=== PATIENT | male | born 1975 | race Caucasian/White ===

== ENCOUNTER 2017-09-20 09:43 | Emergency (ER) | payer OTHER ==
[~2017-09-20] VITALS: Ht 177.8 cm; Wt 136.1 kg
[~2017-09-20 09:43] MED LIST: CRUTCH4 XX; CYCL10 PO; Cleocin HCl300 MG PO; EPIN.3I IM; HYDACE5 PO; HYDHCL25 PO; HYDR1TAB94 PO; IBUP800 PO; Keflex500 MG PO; METPRE4DP PO; Norco 5-325 Ta1 EACH PO; PRED10 PO; Pepcid20 MG PO; Percocet 5-3251 EACH PO; Vibramycin100 MG PO
[2017-09-20 10:37] LABS: BASOPHILS ABSOLUTE AUTO 0.03 K/mm3 (0.00-0.23); BASOPHILS PERCENT AUTO 0 % (0-2); EOSINOPHILS ABSOLUTE AUTO 0.25 K/mm3 (0.00-0.68); EOSINOPHILS PERCENT AUTO 3 % (0-6); Hematocrit 42.6 % (37.0-53.0); Hemoglobin 14.8 g/dL (13.5-17.5); IMMATURE GRAN ABSOLUTE AUTO 0.03 K/mm3 (0.00-0.10); IMMATURE GRAN PERCENT AUTO 0 % (0-1); LYMPHOCYTES ABSOLUTE AUTO 1.82 K/mm3 (0.84-5.20); LYMPHOCYTES PERCENT AUTO 20 % (21-46); MONOCYTES PERCENT AUTO 9 % (4-13); Mean Corpuscular HGB 30.3 pg (26.0-34.0); Mean Corpuscular HGB Conc 34.7 g/dL (31.5-36.5); Mean Corpuscular Volume 87 fL (80-100); Mean Platelet Volume 9.5 fL (9.1-12.4); NEUTROPHILS ABSOLUTE AUTO 6.04 K/mm3 (1.96-9.15); NEUTROPHILS PERCENT AUTO 67 % (41-73); Platelet Count 173 K/mm3 (150-400); RDW Coefficient Variation 12.3 % (11.7-14.2); Red Blood Cell Count 4.88 M/mm3 (4.30-5.90); White Blood Cell Count 8.97 K/mm3 (4.00-11.30)
[2017-09-20 10:48] LABS: Alanine Aminotransfer (ALT/SGP 39 U/L (12-78); Albumin, Blood 3.8 g/dL (3.4-5.0); Alk Phos 67 U/L (50-136); Anion Gap 6 mmol/L (6-16); Aspartate Aminotrans (AST/SGOT 27 U/L (12-37); Bilirubin, Total 0.4 mg/dL (0.1-1.0); Blood Urea Nitrogen 16 mg/dL (8-24); Bun/Creatinine Ratio 17.7 (12.0-20.0); CO2, Blood 28 mmol/L (21-32); Calcium, Blood 8.5 mg/dL (8.5-10.1); Chloride, Blood 107 mmol/L (98-108); Creatinine, Blood 0.91 mg/dL (0.60-1.20); Globulin, Blood 3.9 g/dL (2.2-4.0); Glomerular Filtration Rate >60 (60-); Glucose, Blood 155 mg/dL (70-99); Potassium, Blood 4.1 mmol/L (3.5-5.5); Sodium, Blood 141 mmol/L (136-145); Total Protein, Blood 7.7 g/dL (6.4-8.2)
[2017-09-20 10:49] LABS: Source, Urine Clean Catch
[2017-09-20 10:51] LABS: Bilirubin, Urine Neg (Neg); Blood, Urine Neg (Neg); Glucose Qualitative, Urine 2+ (Neg); Ketones, Urine Neg (Neg); Leukocyte Esterase, Urine Neg (Neg); Nitrite, Urine Neg (Neg); Protein, Urine Neg (Neg); Urobilinogen, Urine NORM (Normal)
[2017-09-20 11:12] LABS: Appearance, Urine Clear (Clear); Color, Urine Yellow (P-Yellow)
[2017-09-20] MEDS ORDERED: Percocet 10-321 EACH PO (11:51)
[2017-09-20] MEDS ORDERED: Cipro500 MG PO (11:51)
[2017-09-20] MEDS ORDERED: Flagyl500 MG PO (11:51)
== END 2017-09-20 12:05 | disposition home or self-care (01) ==
LOC: ER 09:43
PROVIDERS: Emergency Medicine
DX: K57.32 Diverticulitis of large intestine without perforation or abscess without bleeding (principal); Z88.0 Allergy status to penicillin; Z88.2 Allergy status to sulfonamides; Z88.8 Allergy status to other drugs, medicaments and biological substances; Z79.2 Long term (current) use of antibiotics
CPT/HCPCS: 36415; 74177; 80053; 81003; 83690; 85025; 96374; 96375; 99284; J1885; J2405; J3010; Q9967

== ENCOUNTER 2018-05-12 18:06 | Emergency (ER) | payer BC ==
[~2018-05-12] VITALS: Ht 177.8 cm; Wt 136.1 kg
[~2018-05-12 18:06] MED LIST changes: +Cipro500 MG PO; +Flagyl500 MG PO; +IBUP400 PO; +Naprosyn500 MG PO; +Percocet 10-321 EACH PO
[2018-05-12 19:18] LABS: BASOPHILS ABSOLUTE AUTO 0.05 K/mm3 (0.00-0.23); BASOPHILS PERCENT AUTO 0 % (0-2); EOSINOPHILS ABSOLUTE AUTO 0.21 K/mm3 (0.00-0.68); EOSINOPHILS PERCENT AUTO 2 % (0-6); Hematocrit 46.6 % (37.0-53.0); Hemoglobin 15.8 g/dL (13.5-17.5); IMMATURE GRAN ABSOLUTE AUTO 0.05 K/mm3 (0.00-0.10); IMMATURE GRAN PERCENT AUTO 0 % (0-1); LYMPHOCYTES ABSOLUTE AUTO 1.07 K/mm3 (0.84-5.20); LYMPHOCYTES PERCENT AUTO 9 % (21-46); MONOCYTES ABSOLUTE AUTO 0.88 K/mm3 (0.16-1.47); MONOCYTES PERCENT AUTO 8 % (4-13); Mean Corpuscular HGB 29.9 pg (26.0-34.0); Mean Corpuscular HGB Conc 33.9 g/dL (31.5-36.5); Mean Corpuscular Volume 88 fL (80-100); Mean Platelet Volume 9.7 fL (9.1-12.4); NEUTROPHILS ABSOLUTE AUTO 9.25 K/mm3 (1.96-9.15); NEUTROPHILS PERCENT AUTO 81 % (41-73); Platelet Count 165 K/mm3 (150-400); RDW Coefficient Variation 12.3 % (11.7-14.2); RDW Standard Deviation 39.8 fL (35.1-46.3); Red Blood Cell Count 5.28 M/mm3 (4.30-5.90); White Blood Cell Count 11.51 K/mm3 (4.00-11.30)
[2018-05-12 19:32] LABS: Alanine Aminotransfer (ALT/SGP 63 U/L (12-78); Alk Phos 69 U/L (50-136); Anion Gap 4 mmol/L (6-16); Aspartate Aminotrans (AST/SGOT 33 U/L (12-37); Bilirubin, Total 0.4 mg/dL (0.1-1.0); Blood Urea Nitrogen 18 mg/dL (8-24); Bun/Creatinine Ratio 20.6 (12.0-20.0); CO2, Blood 31 mmol/L (21-32); Calcium, Blood 8.5 mg/dL (8.5-10.1); Chloride, Blood 102 mmol/L (98-108); Creatinine, Blood 0.88 mg/dL (0.60-1.20); Globulin, Blood 3.9 g/dL (2.2-4.0); Glomerular Filtration Rate >60 (60-); Glucose, Blood 106 mg/dL (70-99); Potassium, Blood 4.2 mmol/L (3.5-5.5); Sodium, Blood 137 mmol/L (136-145); Total Protein, Blood 7.9 g/dL (6.4-8.2)
[2018-05-12] MEDS ORDERED: Colace100 MG PO (23:16)
== END 2018-05-13 01:32 | disposition home or self-care (01) ==
LOC: ER 18:06
PROVIDERS: Emergency Medicine
DX: R10.32 Left lower quadrant pain (principal); I10 Essential (primary) hypertension; F17.220 Nicotine dependence, chewing tobacco, uncomplicated; Z88.0 Allergy status to penicillin; Z88.2 Allergy status to sulfonamides; Z88.8 Allergy status to other drugs, medicaments and biological substances
CPT/HCPCS: 36415; 74177; 80053; 83690; 85025; 96365; 96366; 96368; 96375; 96376; 99284-25; J0744; J2405; J3010; J7030; Q9967

== ENCOUNTER 2019-06-27 12:08 | Emergency (ER) | payer BC ==
[~2019-06-27] VITALS: Ht 177.8 cm; Wt 145.2 kg
[~2019-06-27 12:08] MED LIST changes: +Colace100 MG PO
[2019-06-27] MEDS ORDERED: Zanaflex4 MG PO (12:20)
[2019-06-27] MEDS ORDERED: Norco 5-325 Ta1 EACH PO (12:23)
[2019-06-27] MEDS ORDERED: NAPR500EC PO (12:23)
[2019-06-27 12:44] LABS: BASOPHILS ABSOLUTE AUTO 0.04 K/mm3 (0.00-0.23); BASOPHILS PERCENT AUTO 1 % (0-2); EOSINOPHILS ABSOLUTE AUTO 0.23 K/mm3 (0.00-0.68); EOSINOPHILS PERCENT AUTO 4 % (0-6); Hematocrit 44.7 % (37.0-53.0); Hemoglobin 15.2 g/dL (13.5-17.5); IMMATURE GRAN ABSOLUTE AUTO 0.04 K/mm3 (0.00-0.10); IMMATURE GRAN PERCENT AUTO 1 % (0-1); LYMPHOCYTES ABSOLUTE AUTO 1.55 K/mm3 (0.84-5.20); LYMPHOCYTES PERCENT AUTO 26 % (21-46); MONOCYTES ABSOLUTE AUTO 0.63 K/mm3 (0.16-1.47); MONOCYTES PERCENT AUTO 10 % (4-13); Mean Corpuscular HGB 29.4 pg (26.0-34.0); Mean Corpuscular Volume 87 fL (80-100); Mean Platelet Volume 9.6 fL (9.1-12.4); NEUTROPHILS ABSOLUTE AUTO 3.58 K/mm3 (1.96-9.15); NEUTROPHILS PERCENT AUTO 59 % (41-73); Platelet Count 170 K/mm3 (150-400); RDW Coefficient Variation 12.1 % (11.7-14.2); RDW Standard Deviation 38.4 fL (35.1-46.3); Red Blood Cell Count 5.17 M/mm3 (4.30-5.90); White Blood Cell Count 6.07 K/mm3 (4.00-11.30)
[2019-06-27 13:04] LABS: Alanine Aminotransfer (ALT/SGP 53 U/L (12-78); Albumin, Blood 3.8 g/dL (3.4-5.0); Albumin/Globulin Ratio 0.9 (0.8-1.8); Alk Phos 65 U/L (50-136); Anion Gap 6 mmol/L (6-16); Aspartate Aminotrans (AST/SGOT 29 U/L (12-37); Bilirubin, Total 0.3 mg/dL (0.1-1.0); Blood Urea Nitrogen 16 mg/dL (8-24); CO2, Blood 27 mmol/L (21-32); Calcium, Blood 8.6 mg/dL (8.5-10.1); Chloride, Blood 105 mmol/L (98-108); Creatinine, Blood 0.76 mg/dL (0.60-1.20); Globulin, Blood 4.1 g/dL (2.2-4.0); Glomerular Filtration Rate >60 (60-); Glucose, Blood 167 mg/dL (70-99); Potassium, Blood 3.7 mmol/L (3.5-5.5); Sodium, Blood 138 mmol/L (136-145); Total Protein, Blood 7.9 g/dL (6.4-8.2)
[2019-06-27] MEDS ORDERED: METPRE4DP PO (17:18)
== END 2019-06-27 18:11 | disposition home or self-care (01) ==
LOC: ER 12:08
PROVIDERS: Physician Assistant
DX: M54.10 Radiculopathy, site unspecified (principal); Z88.0 Allergy status to penicillin; Z88.2 Allergy status to sulfonamides; Z79.899 Other long term (current) drug therapy
CPT/HCPCS: 36415; 71275; 76705; 80053; 83690; 85025; 93005; 93010; 96374-59; 96375-59; 99284-25; J1100; J1885; J2270; J2405; Q9967

== ENCOUNTER 2019-08-20 18:09 | Emergency (ER) | payer BC ==
[~2019-08-20] VITALS: Ht 177.8 cm; Wt 142.9 kg
[~2019-08-20 18:09] MED LIST changes: +NAPR500EC PO; +Zanaflex4 MG PO
[2019-08-20] MEDS ORDERED: CYCLOBENZAPRINE5 MG PO (19:53)
[2019-08-20] MEDS ORDERED: KETO10 PO (19:53)
== END 2019-08-20 20:14 | disposition home or self-care (01) ==
LOC: ER 18:09
DX: S39.012A Strain of muscle, fascia and tendon of lower back, initial encounter (principal); F17.220 Nicotine dependence, chewing tobacco, uncomplicated; Z88.0 Allergy status to penicillin; Z88.2 Allergy status to sulfonamides; Z88.8 Allergy status to other drugs, medicaments and biological substances; V86.59XA Driver of other special all-terrain or other off-road motor vehicle injured in nontraffic accident, initial encounter
CPT/HCPCS: 36415; 72131; 73502; 96374; 96375; 96376; 99284-25; A9270; J1170; J1885

== ENCOUNTER 2019-09-24 04:33 | Emergency (ER) | payer BC ==
[~2019-09-24] VITALS: Ht 177.8 cm; Wt 140.6 kg
[~2019-09-24 04:33] MED LIST changes: +CYCLOBENZAPRINE5 MG PO; +KETO10 PO
[2019-09-24 04:56] LABS: BASOPHILS ABSOLUTE AUTO 0.03 K/mm3 (0.00-0.23); BASOPHILS PERCENT AUTO 0 % (0-2); EOSINOPHILS ABSOLUTE AUTO 0.22 K/mm3 (0.00-0.68); EOSINOPHILS PERCENT AUTO 2 % (0-6); Hemoglobin 14.9 g/dL (13.5-17.5); IMMATURE GRAN ABSOLUTE AUTO 0.04 K/mm3 (0.00-0.10); IMMATURE GRAN PERCENT AUTO 0 % (0-1); LYMPHOCYTES ABSOLUTE AUTO 2.03 K/mm3 (0.84-5.20); LYMPHOCYTES PERCENT AUTO 17 % (21-46); MONOCYTES ABSOLUTE AUTO 1.27 K/mm3 (0.16-1.47); MONOCYTES PERCENT AUTO 10 % (4-13); Mean Corpuscular HGB 29.6 pg (26.0-34.0); Mean Corpuscular HGB Conc 33.9 g/dL (31.5-36.5); Mean Corpuscular Volume 88 fL (80-100); NEUTROPHILS ABSOLUTE AUTO 8.65 K/mm3 (1.96-9.15); NEUTROPHILS PERCENT AUTO 71 % (41-73); Platelet Count 183 K/mm3 (150-400); RDW Standard Deviation 38.5 fL (35.1-46.3); Red Blood Cell Count 5.03 M/mm3 (4.30-5.90); White Blood Cell Count 12.24 K/mm3 (4.00-11.30)
[2019-09-24 05:29] LABS: Albumin, Blood 3.8 g/dL (3.4-5.0); Albumin/Globulin Ratio 0.9 (0.8-1.8); Anion Gap 7 mmol/L (6-16); Bilirubin, Total 0.4 mg/dL (0.1-1.0); Blood Urea Nitrogen 17 mg/dL (8-24); Bun/Creatinine Ratio 19.8 (12.0-20.0); CO2, Blood 27 mmol/L (21-32); Calcium, Blood 8.1 mg/dL (8.5-10.1); Chloride, Blood 104 mmol/L (98-108); Creatinine, Blood 0.86 mg/dL (0.60-1.20); Globulin, Blood 4.2 g/dL (2.2-4.0); Glomerular Filtration Rate >60 (60-); Glucose, Blood 134 mg/dL (70-99); Potassium, Blood 4.2 mmol/L (3.5-5.5); Sodium, Blood 138 mmol/L (136-145)
[2019-09-24 05:30] LABS: Alanine Aminotransfer (ALT/SGP 49 U/L (12-78); Alk Phos 76 U/L (50-136); Aspartate Aminotrans (AST/SGOT 23 U/L (12-37)
[2019-09-24] MEDS ORDERED: Norco 5-325 Ta1 EACH PO ×2 (05:38)
[2019-09-24] MEDS ORDERED: ONDA4ODT MM ×2 (05:38)
[2019-09-24] MEDS ORDERED: Cipro500 MG PO ×2 (05:38)
[2019-09-24] MEDS ORDERED: Flagyl500 MG PO ×2 (05:38)
== END 2019-09-24 06:18 | disposition home or self-care (01) ==
LOC: ER 04:33
PROVIDERS: Emergency Medicine
DX: K57.32 Diverticulitis of large intestine without perforation or abscess without bleeding (principal); F17.220 Nicotine dependence, chewing tobacco, uncomplicated; Z88.0 Allergy status to penicillin; Z88.2 Allergy status to sulfonamides; Z88.8 Allergy status to other drugs, medicaments and biological substances
CPT/HCPCS: 36415; 74176; 80053; 83690; 85025; 96361; 96374; 96375; 99284-25; A9270-GY; J1885; J2405; J3010; J7030

== ENCOUNTER 2019-09-24 20:46 | Inpatient (IN) | payer BC ==
[~2019-09-24] VITALS: Ht 177.8 cm; Wt 143.4 kg
[~2019-09-24 20:46] MED LIST changes: +ONDA4ODT MM
[2019-09-24 22:00] LABS: BASOPHILS ABSOLUTE AUTO 0.04 K/mm3 (0.00-0.23); BASOPHILS PERCENT AUTO 1 % (0-2); EOSINOPHILS ABSOLUTE AUTO 0.19 K/mm3 (0.00-0.68); EOSINOPHILS PERCENT AUTO 2 % (0-6); Hematocrit 41.8 % (37.0-53.0); Hemoglobin 14.5 g/dL (13.5-17.5); IMMATURE GRAN ABSOLUTE AUTO 0.03 K/mm3 (0.00-0.10); IMMATURE GRAN PERCENT AUTO 0 % (0-1); LYMPHOCYTES ABSOLUTE AUTO 2.32 K/mm3 (0.84-5.20); LYMPHOCYTES PERCENT AUTO 28 % (21-46); MONOCYTES ABSOLUTE AUTO 0.68 K/mm3 (0.16-1.47); MONOCYTES PERCENT AUTO 8 % (4-13); Mean Corpuscular HGB 30.1 pg (26.0-34.0); Mean Corpuscular HGB Conc 34.7 g/dL (31.5-36.5); Mean Corpuscular Volume 87 fL (80-100); NEUTROPHILS ABSOLUTE AUTO 5.11 K/mm3 (1.96-9.15); NEUTROPHILS PERCENT AUTO 61 % (41-73); RDW Standard Deviation 38.2 fL (35.1-46.3); Red Blood Cell Count 4.82 M/mm3 (4.30-5.90); White Blood Cell Count 8.37 K/mm3 (4.00-11.30)
[2019-09-24 22:04] LABS: Mean Platelet Volume 10.5 fL (9.1-12.4); Platelet Count 187 K/mm3 (150-400)
[2019-09-24 22:10] LABS: Alanine Aminotransfer (ALT/SGP 49 U/L (12-78); Albumin, Blood 3.7 g/dL (3.4-5.0); Albumin/Globulin Ratio 0.9 (0.8-1.8); Alk Phos 70 U/L (50-136); Anion Gap 7 mmol/L (6-16); Aspartate Aminotrans (AST/SGOT 31 U/L (12-37); Bilirubin, Total 0.3 mg/dL (0.1-1.0); Blood Urea Nitrogen 20 mg/dL (8-24); Bun/Creatinine Ratio 21.9 (12.0-20.0); CO2, Blood 26 mmol/L (21-32); Calcium, Blood 7.8 mg/dL (8.5-10.1); Chloride, Blood 106 mmol/L (98-108); Creatinine, Blood 0.92 mg/dL (0.60-1.20); Globulin, Blood 4.1 g/dL (2.2-4.0); Glomerular Filtration Rate >60 (60-); Glucose, Blood 106 mg/dL (70-99); Potassium, Blood 3.6 mmol/L (3.5-5.5); Sodium, Blood 139 mmol/L (136-145); Total Protein, Blood 7.8 g/dL (6.4-8.2)
[2019-09-25 05:36] LABS: BASOPHILS ABSOLUTE AUTO 0.05 K/mm3 (0.00-0.23); BASOPHILS PERCENT AUTO 1 % (0-2); EOSINOPHILS PERCENT AUTO 3 % (0-6); Hematocrit 41.6 % (37.0-53.0); Hemoglobin 13.6 g/dL (13.5-17.5); IMMATURE GRAN ABSOLUTE AUTO 0.03 K/mm3 (0.00-0.10); IMMATURE GRAN PERCENT AUTO 0 % (0-1); LYMPHOCYTES ABSOLUTE AUTO 2.31 K/mm3 (0.84-5.20); LYMPHOCYTES PERCENT AUTO 34 % (21-46); MONOCYTES ABSOLUTE AUTO 0.78 K/mm3 (0.16-1.47); MONOCYTES PERCENT AUTO 12 % (4-13); Mean Corpuscular HGB 29.2 pg (26.0-34.0); Mean Corpuscular HGB Conc 32.7 g/dL (31.5-36.5); NEUTROPHILS ABSOLUTE AUTO 3.39 K/mm3 (1.96-9.15); NEUTROPHILS PERCENT AUTO 50 % (41-73); Platelet Count 155 K/mm3 (150-400); RDW Coefficient Variation 12.2 % (11.7-14.2); RDW Standard Deviation 39.7 fL (35.1-46.3); Red Blood Cell Count 4.65 M/mm3 (4.30-5.90); White Blood Cell Count 6.76 K/mm3 (4.00-11.30)
[2019-09-25 05:39] LABS: Mean Corpuscular Volume 90 fL (80-100)
[2019-09-25 05:56] LABS: Anion Gap 3 mmol/L (6-16); Blood Urea Nitrogen 17 mg/dL (8-24); CO2, Blood 31 mmol/L (21-32); Calcium, Blood 7.8 mg/dL (8.5-10.1); Chloride, Blood 106 mmol/L (98-108); Creatinine, Blood 0.89 mg/dL (0.60-1.20); Glomerular Filtration Rate >60 (60-); Glucose, Blood 113 mg/dL (70-99); Potassium, Blood 4.2 mmol/L (3.5-5.5); Sodium, Blood 140 mmol/L (136-145)
--- NOTE | 2019-09-25 06:28 | NUR ---
SHIFT SUMMARY PT WAS A NEW ADMIT DURING THE NIGHT, ARRIVING ON THE FLOOR AT 2358. HE WAS ADMITTED FOR DIVERTICULITIS WITH PERFORATIONS. PT IS A&O X 4, UP INDEPENDENTLY. HE REPORTED LOWER ABD PAIN AT A 6-7/10, AND WAS TREATED WITH PRN IV DILAUDID 0.5 MG AND PRN IV TORADOL 15 MG, BUT DENIED RELIEF FROM EITHER MED. NO COMPLAINTS OF NAUSEA OR SOB. VITAL SIGNS STABLE. PT WAS STARTED ON A CPAP DURING THE NIGHT. RECEIVING NS @ 75 ML/HR. PT IS CURRENTLY NPO, AWAITING SURGICAL CONSULT. NO OTHER ACUTE CHANGES IN PT CONDITION NOTED. WILL CONTINUE TO MONITOR AND TREAT PER EMAR UNTIL HAND OFF TO DAY SHIFT RN.
--- NOTE | 2019-09-25 16:35 | NUR ---
SHIFT SUMMARY PT SEEN BY DR. LIU FOR SURGICAL CONSULT. PLAN TO REST BOWEL WITH CLEAR LIQUIDS ONLY. PT STATES THE LIQUIDS ARE STILL UPSETING HIS STOMACH. PT EDUCATED TO ONLY INTAKE WHAT HE CAN TOLERATE FOR NOW, EVEN IF IT IS ONLY WATER. PT TOLERATING IV FLUIDS AT THIS TIME. SHOWERED TODAY. SEE EMAR FOR PAIN MED ADMINISTRATION. NO OTHER CHANGES IN ASSESSMENT AT THIS TIME. VSS. WILL CONTINUE TO MONITOR UNTIL TURNOVER IS COMPLETE.
--- NOTE | 2019-09-26 13:56 | NUR ---
PAtient is sitting on EOB and alert. Patient tells me he will be DC soon. Patient tells me about his family unit complications, his career and his spiritual journey (patient is lutheran). 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 I listen empathically, encourage self-care and provide prayer. Patient responds well and voices much appreciation for the prayer.
[2019-09-26] MEDS ORDERED: CIPR500 PO ×2 (14:16)
[2019-09-26] MEDS ORDERED: METR500 PO ×2 (14:17)
[2019-09-26] MEDS ORDERED: Florastor250 MG PO ×2 (14:18)
--- NOTE | 2019-09-26 14:58 | NUR ---
PT DISCHARGED. PT DISCHARGED IN STABLE CONDITION. PT STATES DECREASED ABD PAIN AND HAS NOT NEEDED PAIN MEDS THIS SHIFT. NO NAUSEA MEDS NEEDED EITHER. PT TOLERATING SMALL AMOUNTS OF CLEAR LIQUID. PT EDUCATED ON REMAINING ON LIQUID DIET AND ADVANCING TOLERATED. PT EDUCATED ON NEW MEDS AND FOLLOW UP APPOINTMENTS. PT DENIES NEED FOR FURTHER INSTRUCTION. PT ESCORTED OUT BY THIS RN.
== END 2019-09-26 15:15 | disposition home or self-care (01) | DRG 392 ==
LOC: ER 20:46 → MEDS 20:47
PROVIDERS: Emergency Medicine; Nurse Practitioner Acute Care; ADMIT Internal Medicine
DX: K57.20 Diverticulitis of large intestine with perforation and abscess without bleeding (principal); Z68.41 Body mass index [BMI] 40.0-44.9, adult; I10 Essential (primary) hypertension; G47.33 Obstructive sleep apnea (adult) (pediatric); F17.220 Nicotine dependence, chewing tobacco, uncomplicated; E66.9 Obesity, unspecified; Z88.0 Allergy status to penicillin; Z88.2 Allergy status to sulfonamides; Z90.49 Acquired absence of other specified parts of digestive tract
CPT/HCPCS: 36415; 80048; 80053; 83690; 85025; 94660; 94762; 96365; 96367; 96375; 96376; 99284-25; G0378; J0360; J0694; J0696; J1170; J1885; J2405; J3010; J7030

== ENCOUNTER → 2021-01-24 | Outpatient (CLI) | payer BC ==
[~2021-01-24] MED LIST changes: +CIPR500 PO; +Florastor250 MG PO; +METR500 PO; +Prednisone20 MG PO
== END | disposition home or self-care (01) ==
LOC: LAB 13:36 → LAB SHORT 13:36
DX: Z20.822 Contact with and (suspected) exposure to COVID-19 (principal)
CPT/HCPCS: U0003

== ENCOUNTER 2021-11-16 17:23 | Emergency (ER) | payer BC ==
[~2021-11-16] VITALS: Ht 182.9 cm; Wt 145.2 kg
[~2021-11-16 17:23] MED LIST changes: +ACET325 PO; +ACET500 PO; +ASPI81CH PO; +HYDCHL25 PO
== END 2021-11-16 20:17 | disposition home or self-care (01) ==
LOC: ER 17:23
DX: S83.92XA Sprain of unspecified site of left knee, initial encounter (principal); X50.1XXA Overexertion from prolonged static or awkward postures, initial encounter; Z88.0 Allergy status to penicillin; Z88.2 Allergy status to sulfonamides; Z88.8 Allergy status to other drugs, medicaments and biological substances; Z79.899 Other long term (current) drug therapy
CPT/HCPCS: 73562-LT; J1885

== ENCOUNTER 2023-03-24 09:13 | Emergency (ER) | payer BC ==
[~2023-03-24] VITALS: Ht 177.8 cm; Wt 145.2 kg
[2023-03-24 10:04] VITALS: BP 231/153
[2023-03-24] MEDS ORDERED: Norco 5-325 Ta1 EACH PO (12:46)
== END 2023-03-24 12:55 | disposition home or self-care (01) ==
LOC: ER 09:13
DX: M25.561 Pain in right knee (principal); W10.1XXA Fall (on)(from) sidewalk curb, initial encounter
CPT/HCPCS: 73562-RT; 73700; 99284-25; A9270

== ENCOUNTER 2023-03-26 12:31 | Inpatient (IN) | payer BC ==
[~2023-03-26] VITALS: Ht 177.8 cm; Wt 149.7 kg
[2023-03-26 12:53] LABS: BASOPHILS ABSOLUTE AUTO 0.05 K/mm3 (0.00-0.23); BASOPHILS PERCENT AUTO 1 % (0-2); EOSINOPHILS ABSOLUTE AUTO 0.13 K/mm3 (0.00-0.68); EOSINOPHILS PERCENT AUTO 2 % (0-6); Hematocrit 46.7 % (37.0-53.0); Hemoglobin 15.9 g/dL (13.5-17.5); IMMATURE GRAN ABSOLUTE AUTO 0.02 K/mm3 (0.00-0.10); IMMATURE GRAN PERCENT AUTO 0 % (0-1); LYMPHOCYTES ABSOLUTE AUTO 2.27 K/mm3 (0.84-5.20); LYMPHOCYTES PERCENT AUTO 31 % (21-46); MONOCYTES ABSOLUTE AUTO 0.72 K/mm3 (0.16-1.47); MONOCYTES PERCENT AUTO 10 % (4-13); Mean Corpuscular HGB 29.4 pg (26.0-34.0); Mean Corpuscular Volume 86 fL (80-100); Mean Platelet Volume 10.4 fL (9.1-12.4); NEUTROPHILS ABSOLUTE AUTO 4.22 K/mm3 (1.96-9.15); NEUTROPHILS PERCENT AUTO 57 % (41-73); Platelet Count 177 K/mm3 (150-400); RDW Coefficient Variation 12.6 % (11.7-14.2); RDW Standard Deviation 39.5 fL (35.1-46.3); Red Blood Cell Count 5.41 M/mm3 (4.30-5.90); White Blood Cell Count 7.41 K/mm3 (4.00-11.30)
[2023-03-26 13:16] LABS: Albumin, Blood 3.8 g/dL (3.4-5.0); Bilirubin, Total 0.5 mg/dL (0.1-1.0); Calcium, Blood 8.5 mg/dL (8.5-10.1); Creatinine, Blood 1.21 mg/dL (0.60-1.20); Globulin, Blood 3.9 g/dL (2.2-4.0); Potassium, Blood 4.3 mmol/L (3.5-5.5); Total Protein, Blood 7.7 g/dL (6.4-8.2)
[2023-03-26] MEDS ORDERED: Lisinopril-Hct1 EAC4 PO (16:31)
[2023-03-26 22:33] VITALS: BP 165/103
--- NOTE | 2023-03-26 23:12 | NUR ---
ADMIT NOTE PT ARRIVED TO ROOM 355 FROM ED AT 2225. ARRIVED VIA WHEELCHAIR AND TRANSFERED INDEPENDENTLY TO THE BED. DYSPNEIC WITH EXERTION, PLACED PT ON 2L NC. PT ENDORSES MILD RIGHT KNEE PAIN UPON ARRIVAL. PT IS ABLE TO REST INTO THE BED COMFORTABLY. BED IN LOWEST POSITION, CALL LIGHT WITHIN REACH. FIRE EDUCATION PROVIDED. FIRE IGNITION RISK ASSESSED, PT DENIES HAVING ANY FORMS OF IGNITION.
[2023-03-26 23:23] VITALS: BP 147/89
[2023-03-27 04:09] VITALS: BP 134/77
--- NOTE | 2023-03-27 04:41 | NUR ---
SHIFT SUMMARY PT IS A&OX4. HYPER-NORMOTENSIVE, HR 60-70'S, AFEBRILE, O2 SATS >95% ON 2L NC, CPAP WHILE ASLEEP. DYSPNEA WITH EXERTION. NO COMPLAINTS OF CHEST PAIN OR PRESSURE THIS SHIFT. C/O RIGHT KNEE PAIN, BUT DOESN'T REQUEST PAIN MEDS. ON A 2GM NA RESTRICTED DIET. VOIDING ADEQUATE AMOUNTS YELLOW URINE, INDEPENDENTLY IN URINAL. NO BM THIS SHIFT. BED IN LOWEST POSITION. CALL LIGHT WITHIN REACH. FIRE SAFETY CHECKS COMPLETED
[2023-03-27 05:49] LABS: Bun/Creatinine Ratio 26.1 (12.0-20.0); Calcium, Blood 8.6 mg/dL (8.5-10.1); Creatinine, Blood 1.15 mg/dL (0.60-1.20); Potassium, Blood 4.4 mmol/L (3.5-5.5)
[2023-03-27 08:05] VITALS: BP 137/74
[2023-03-27 15:46] VITALS: BP 162/99
--- NOTE | 2023-03-27 17:54 | NUR ---
SHIFT SUMMARY: PT IS A 47 YEAR OLD MALE HERE FOR NEW ONSET CHF. WE ARE AWAITING RESULT FOR AN ECHO THAT WAS DONE TODAY. HE DENIED ANY CHEST PAIN, BUT STATES THAT HE WILL HAVE CHEST PRESSURE WHEN HE LAYS FLAT. HE IS SHORT OF BREATH WITH EXERTION, BUT DOESN'T SEEM LABORED WITH HIS BREATHING THING MORNING. HE HAS COMPLAINED OF SEVERE HEADACHES WITH THE NITRO PASTE, THIS WAS D/C'D THIS AFTERNOON. TREATING HEADACHES AND CHRONIC BILTERAL KNEE PAIN WITH PRN MEDS. HE IS ALERT AND ORIENTED X4 AND INDEPENDENT IN THE ROOM, CALLS APPROPRIATELY. ON ROOMAIR AND MAINTAINING OXYGEN SATURATION <92% ON CONTINUOUS BI OX. IN BED AND DAUGHTER AT BEDSIDE, CALL LIGHT WITHIN REACH, NO SIGNS OR SYMPTOMS OF DISTRESS. PLAN OF CARE ONGOING.
[2023-03-27 20:01] VITALS: BP 155/103
[2023-03-27 21:42] VITALS: BP 159/95
--- NOTE | 2023-03-28 04:26 | NUR ---
SHIFT SUMMARY; NO ACUTE CHANGES OVERNIGHT. THE PT IS AXO X4 AND INDEPENDENT IN THE ROOM. THE PT HAS CPAP ON W/ 5L BLEED IN SATS HAVE BEEN >92% T/O THE NIGHT. THE PT IS AWAITING ECHO RESULTS AND IS HOPEFUL HE CAN DC TODAY. THE PT HAS BEEN SLEEPING IN BED FOR THE DURATION OF THE SHIFT. THE PT DENIES ANY SOB, CHEST PAIN/PRESSURE OR N/V. THE PT ENDORSED SOME MILD R KNEE PAIN AT THE BEGINNING OF SHIFT BUT IT WAS NOT SEVERE ENOUGH THAT HE WANTED ANY PRN PAIN MEDICATIONS AT THAT TIME. PRESENTLY THE PT IS SLEEPING IN BED WITH THE BED IN THE LOWEST POSITION AND THE CALL LIGHT AT BEDSIDE. FIRE SAFETY CHECKS COMPLETED T/O THE SHIFT.
[2023-03-28 04:49] VITALS: BP 142/99
[2023-03-28 05:11] LABS: Calcium, Blood 8.6 mg/dL (8.5-10.1); Creatinine, Blood 1.16 mg/dL (0.60-1.20); Potassium, Blood 4.1 mmol/L (3.5-5.5)
[2023-03-28 07:44] VITALS: BP 141/92
[2023-03-28 15:36] VITALS: BP 154/90
--- NOTE | 2023-03-28 17:52 | NUR ---
SHIFT SUMMARY EDUCATION PROVIDED IN WRITING ON HEART FAILURE, QUESTIONS ANSWERED. OVERNIGHT OXIMETRY STUDY ORDERED. C/O PAIN IN KNEE, REQUIRING NORCO. TOLERATING ROOM AIR ALL SHIFT. WILL CONTINUE TO MONITOR
[2023-03-28 20:16] VITALS: BP 135/81
--- NOTE | 2023-03-29 04:29 | NUR ---
SHIFT SUMMARY; NO ACUTE CHANGES OVERNIGHT. THE PT IS AXO X4 AND INDEPENDENT IN THE ROOM. THE PT HAS BEEN SLEEPING FOR THE ENTIRETY OF THE NIGHT. THE PT HAD A SLEEP STUDY OVERNIGHT. THE PT REQUESTED PRN PAIN MEDICATION AT THE BEGINNING OF SHIFT FOR HIS R KNEE BUT HAS SINCE BEEN SLEEPING. THE PT OTHERWISE DENIES ANY SOB, CHEST PAIN/PRESSURE OR N/V THIS SHIFT. CURRENTLY THE PT IS SLEEPING IN BED WITH THE BED IN THE LOWEST POSITION AND THE CALL LIGHT AT BEDSIDE. FIRE SAFETY ROUNDS COMPLETED.
[2023-03-29 05:09] VITALS: BP 106/68
[2023-03-29 07:38] VITALS: BP 148/84
[2023-03-29] MEDS ORDERED: FURO40 PO (12:06)
[2023-03-29] MEDS ORDERED: ASPI81CH PO (12:06)
[2023-03-29] MEDS ORDERED: METO25ER PO (12:07)
[2023-03-29] MEDS ORDERED: LISI20 PO (12:07)
[2023-03-29] MEDS ORDERED: POTA10T PO (12:08)
[2023-03-29] MEDS ORDERED: FARXIGA10 MG PO (12:08)
== END 2023-03-29 13:09 | disposition home or self-care (01) | DRG 291 ==
LOC: ER 12:31 → MEDS 12:32 → ENPENDDIS 03-29 11:20 → MEDS 03-29 13:09
PROVIDERS: Emergency Medicine; Internal Medicine; Nurse Practitioner Acute Care; ADMIT Internal Medicine
PROC: 5A09357 Assistance with Respiratory Ventilation, Less than 24 Consecutive Hours, Continuous Positive Airway Pressure (ICD-10-PCS; principal; 2023-03-29)
DX: I11.0 Hypertensive heart disease with heart failure (principal); I50.21 Acute systolic (congestive) heart failure; I43 Cardiomyopathy in diseases classified elsewhere; I16.0 Hypertensive urgency; R07.9 Chest pain, unspecified; F17.290 Nicotine dependence, other tobacco product, uncomplicated; K57.90 Diverticulosis of intestine, part unspecified, without perforation or abscess without bleeding; G47.33 Obstructive sleep apnea (adult) (pediatric); Z88.0 Allergy status to penicillin; Z88.2 Allergy status to sulfonamides; Z88.8 Allergy status to other drugs, medicaments and biological substances; Z79.82 Long term (current) use of aspirin; Z79.891 Long term (current) use of opiate analgesic; Z90.49 Acquired absence of other specified parts of digestive tract
CPT/HCPCS: 36415; 71046; 80048; 80053; 83735; 83880; 84443; 84484; 85025; 93005; 93010; 93306; 94660; 94761; 94762; 96374; 96376; 99285-25; A9270; G0378; J1650; J1940

== ENCOUNTER 2023-04-04 06:41 | Emergency (ER) | payer BC ==
[~2023-04-04] VITALS: Ht 177.8 cm; Wt 147.4 kg
[~2023-04-04 06:41] MED LIST changes: +FARXIGA10 MG PO; +FURO40 PO; +LISI20 PO; +Lisinopril-Hct1 EAC4 PO; +METO25ER PO; +POTA10T PO
[2023-04-04 07:08] LABS: BASOPHILS ABSOLUTE AUTO 0.09 K/mm3 (0.00-0.23); BASOPHILS PERCENT AUTO 1 % (0-2); EOSINOPHILS ABSOLUTE AUTO 0.33 K/mm3 (0.00-0.68); EOSINOPHILS PERCENT AUTO 4 % (0-6); Hematocrit 48.9 % (37.0-53.0); Hemoglobin 16.5 g/dL (13.5-17.5); IMMATURE GRAN ABSOLUTE AUTO 0.02 K/mm3 (0.00-0.10); IMMATURE GRAN PERCENT AUTO 0 % (0-1); LYMPHOCYTES ABSOLUTE AUTO 2.75 K/mm3 (0.84-5.20); LYMPHOCYTES PERCENT AUTO 34 % (21-46); MONOCYTES ABSOLUTE AUTO 0.95 K/mm3 (0.16-1.47); MONOCYTES PERCENT AUTO 12 % (4-13); Mean Corpuscular HGB 29.5 pg (26.0-34.0); Mean Corpuscular HGB Conc 33.7 g/dL (31.5-36.5); Mean Corpuscular Volume 87 fL (80-100); Mean Platelet Volume 10.2 fL (9.1-12.4); NEUTROPHILS ABSOLUTE AUTO 3.87 K/mm3 (1.96-9.15); NEUTROPHILS PERCENT AUTO 48 % (41-73); Platelet Count 212 K/mm3 (150-400); RDW Coefficient Variation 12.4 % (11.7-14.2); RDW Standard Deviation 39.9 fL (35.1-46.3); White Blood Cell Count 8.01 K/mm3 (4.00-11.30)
[2023-04-04 07:23] LABS: Bilirubin, Total 0.3 mg/dL (0.1-1.0); Bun/Creatinine Ratio 23.9 (12.0-20.0); Calcium, Blood 8.7 mg/dL (8.5-10.1); Creatinine, Blood 1.17 mg/dL (0.60-1.20); Globulin, Blood 4.1 g/dL (2.2-4.0); Magnesium, Blood 2.4 mg/dL (1.6-2.4); Potassium, Blood 4.6 mmol/L (3.5-5.5); Total Protein, Blood 8.1 g/dL (6.4-8.2)
[2023-04-04 09:40] VITALS: BP 127/70
[2023-04-04] MEDS ORDERED: FAMO20 PO (10:14)
[2023-04-04] MEDS ORDERED: ALMACONE SUSPE355 ML PO (10:14)
[2023-04-04] MEDS ORDERED: ONDA4ODT MM (10:14)
== END 2023-04-04 10:27 | disposition home or self-care (01) ==
LOC: ER 06:41
PROVIDERS: Student in an Organized Health Care Education/Training Program
DX: K21.9 Gastro-esophageal reflux disease without esophagitis (principal); I11.0 Hypertensive heart disease with heart failure; I50.30 Unspecified diastolic (congestive) heart failure; G47.33 Obstructive sleep apnea (adult) (pediatric); F17.220 Nicotine dependence, chewing tobacco, uncomplicated; Z88.0 Allergy status to penicillin; Z88.2 Allergy status to sulfonamides; Z88.8 Allergy status to other drugs, medicaments and biological substances; Z79.82 Long term (current) use of aspirin; Z79.84 Long term (current) use of oral hypoglycemic drugs; Z79.899 Other long term (current) drug therapy; Z99.89 Dependence on other enabling machines and devices
CPT/HCPCS: 71046; 80053; 83735; 83880; 84484; 85025; 93005; 93010; 96374; 96375; 99285-25; A9270; J1790

== ENCOUNTER 2023-12-07 11:40 | Emergency (ER) | payer BC ==
[~2023-12-07] VITALS: Ht 177.8 cm; Wt 136.1 kg
[~2023-12-07 11:40] MED LIST changes: +ALMACONE SUSPE355 ML PO; +FAMO20 PO; +Isosorbide Mono30 MG PO; +NITR.4SL SL; +OZEMPIC0.25 MG/02 SQ
[2023-12-07 12:13] LABS: BASOPHILS ABSOLUTE AUTO 0.06 K/mm3 (0.00-0.23); BASOPHILS PERCENT AUTO 1 % (0-2); EOSINOPHILS ABSOLUTE AUTO 0.29 K/mm3 (0.00-0.68); EOSINOPHILS PERCENT AUTO 3 % (0-6); Hematocrit 40.6 % (37.0-53.0); Hemoglobin 14.1 g/dL (13.5-17.5); IMMATURE GRAN ABSOLUTE AUTO 0.02 K/mm3 (0.00-0.10); IMMATURE GRAN PERCENT AUTO 0 % (0-1); LYMPHOCYTES ABSOLUTE AUTO 1.87 K/mm3 (0.84-5.20); LYMPHOCYTES PERCENT AUTO 21 % (21-46); MONOCYTES ABSOLUTE AUTO 0.69 K/mm3 (0.16-1.47); MONOCYTES PERCENT AUTO 8 % (4-13); Mean Corpuscular HGB Conc 34.7 g/dL (31.5-36.5); Mean Corpuscular Volume 89 fL (80-100); NEUTROPHILS ABSOLUTE AUTO 5.85 K/mm3 (1.96-9.15); NEUTROPHILS PERCENT AUTO 67 % (41-73); Platelet Count 192 K/mm3 (150-400); RDW Coefficient Variation 12.7 % (11.7-14.2); RDW Standard Deviation 41.5 fL (35.1-46.3); Red Blood Cell Count 4.55 M/mm3 (4.30-5.90); White Blood Cell Count 8.78 K/mm3 (4.00-11.30)
[2023-12-07] MEDS ORDERED: Nitroglycerin 0.4 MG SUBL SL ONE (12:30)
[2023-12-07 12:37] LABS: Bilirubin, Total 0.5 mg/dL (0.1-1.0); Bun/Creatinine Ratio 17.8 (12.0-20.0); Calcium, Blood 9.2 mg/dL (8.5-10.1); Creatinine, Blood 1.07 mg/dL (0.60-1.20)
[2023-12-07 14:00] VITALS: BP 106/68
[2023-12-08] MEDS ORDERED: ATORVASTATIN CA20 MG PO (19:22)
[2023-12-08] MEDS ORDERED: LIDO700A20 TOP (21:47)
[2023-12-08] MEDS ORDERED: ALMACONE SUSPE355 ML PO (21:47)
== END 2023-12-07 14:08 | disposition home or self-care (01) ==
LOC: ER 11:40
PROVIDERS: Student in an Organized Health Care Education/Training Program
DX: I20.89 Other forms of angina pectoris (principal); I11.0 Hypertensive heart disease with heart failure; I50.20 Unspecified systolic (congestive) heart failure; F17.220 Nicotine dependence, chewing tobacco, uncomplicated; Z88.0 Allergy status to penicillin; Z88.2 Allergy status to sulfonamides; Z88.8 Allergy status to other drugs, medicaments and biological substances; Z79.82 Long term (current) use of aspirin; Z79.899 Other long term (current) drug therapy
CPT/HCPCS: 71046; 80053; 83880; 84484; 85025; 93005; 93010; 99285-25

== ENCOUNTER 2023-12-08 18:30 | Emergency (ER) | payer BC ==
[~2023-12-08] VITALS: Ht 177.8 cm; Wt 131.5 kg
[2023-12-08 19:10] LABS: Albumin, Blood 3.9 g/dL (3.4-5.0); Bilirubin, Total 0.4 mg/dL (0.1-1.0); Bun/Creatinine Ratio 17.8 (12.0-20.0); Calcium, Blood 8.8 mg/dL (8.5-10.1); Creatinine, Blood 1.18 mg/dL (0.60-1.20); Potassium, Blood 4.6 mmol/L (3.5-5.5); Total Protein, Blood 7.9 g/dL (6.4-8.2)
[2023-12-08 19:13] LABS: BASOPHILS ABSOLUTE AUTO 0.06 K/mm3 (0.00-0.23); BASOPHILS PERCENT AUTO 1 % (0-2); EOSINOPHILS ABSOLUTE AUTO 0.38 K/mm3 (0.00-0.68); EOSINOPHILS PERCENT AUTO 4 % (0-6); Hematocrit 39.4 % (37.0-53.0); Hemoglobin 13.5 g/dL (13.5-17.5); IMMATURE GRAN ABSOLUTE AUTO 0.05 K/mm3 (0.00-0.10); IMMATURE GRAN PERCENT AUTO 1 % (0-1); LYMPHOCYTES ABSOLUTE AUTO 2.21 K/mm3 (0.84-5.20); LYMPHOCYTES PERCENT AUTO 20 % (21-46); MONOCYTES ABSOLUTE AUTO 0.82 K/mm3 (0.16-1.47); MONOCYTES PERCENT AUTO 8 % (4-13); Mean Corpuscular HGB 30.9 pg (26.0-34.0); Mean Corpuscular HGB Conc 34.3 g/dL (31.5-36.5); Mean Corpuscular Volume 90 fL (80-100); Mean Platelet Volume 9.9 fL (9.1-12.4); NEUTROPHILS ABSOLUTE AUTO 7.34 K/mm3 (1.96-9.15); NEUTROPHILS PERCENT AUTO 68 % (41-73); Platelet Count 204 K/mm3 (150-400); RDW Coefficient Variation 12.9 % (11.7-14.2); Red Blood Cell Count 4.37 M/mm3 (4.30-5.90); White Blood Cell Count 10.86 K/mm3 (4.00-11.30)
[2023-12-08] MEDS ORDERED: ATORVASTATIN CA20 MG PO (19:22)
[2023-12-08] MEDS ORDERED: Lidocaine 2% Viscous Soln 15 ML UDC PO ONE (20:15)
[2023-12-08] MEDS ORDERED: Mag Hydrox/AL Hydrox/Simeth 30 ML UDC PO ONE (20:15)
[2023-12-08] MEDS ORDERED: Ketorolac Tromethamine 30mg Vial IV ONE (21:40)
[2023-12-08] MEDS ORDERED: Lidocaine 4% 1 Patch TOP ONE (21:40)
[2023-12-08] MEDS ORDERED: ALMACONE SUSPE355 ML PO (21:47)
[2023-12-08] MEDS ORDERED: LIDO700A20 TOP (21:47)
[2023-12-08 22:00] VITALS: BP 112/58
== END 2023-12-08 22:06 | disposition home or self-care (01) ==
LOC: ER 18:30
PROVIDERS: Emergency Medicine
DX: R07.2 Precordial pain (principal); K21.9 Gastro-esophageal reflux disease without esophagitis; Z68.41 Body mass index [BMI] 40.0-44.9, adult; Z79.82 Long term (current) use of aspirin; Z79.899 Other long term (current) drug therapy; Z88.0 Allergy status to penicillin; Z88.2 Allergy status to sulfonamides; Z88.8 Allergy status to other drugs, medicaments and biological substances
CPT/HCPCS: 71046; 80053; 83690; 84484; 85025; 93005; 93010; 96374; 99285-25; A9270; J1885

== ENCOUNTER → 2025-03-21 | Outpatient (CLI) | payer BC ==
[~2025-03-21] MED LIST changes: +ATORVASTATIN CA20 MG PO; +LIDO700A20 TOP
[2025-03-21 15:55] LABS: BASOPHILS ABSOLUTE AUTO 0.06 K/mm3 (0.00-0.23); BASOPHILS PERCENT AUTO 1 % (0-2); EOSINOPHILS ABSOLUTE AUTO 0.16 K/mm3 (0.00-0.68); EOSINOPHILS PERCENT AUTO 2 % (0-6); Hematocrit 43.6 % (37.0-53.0); Hemoglobin 15.2 g/dL (13.5-17.5); IMMATURE GRAN ABSOLUTE AUTO 0.05 K/mm3 (0.00-0.10); IMMATURE GRAN PERCENT AUTO 1 % (0-1); LYMPHOCYTES ABSOLUTE AUTO 2.41 K/mm3 (0.84-5.20); LYMPHOCYTES PERCENT AUTO 30 % (21-46); MONOCYTES ABSOLUTE AUTO 0.75 K/mm3 (0.16-1.47); MONOCYTES PERCENT AUTO 9 % (4-13); Mean Corpuscular HGB Conc 34.9 g/dL (31.5-36.5); Mean Corpuscular Volume 91 fL (80-100); NEUTROPHILS ABSOLUTE AUTO 4.65 K/mm3 (1.96-9.15); NEUTROPHILS PERCENT AUTO 58 % (41-73); NRBC ABSOLUTE 0.00 K/mm3 (0.00-0.02); NRBC Auto 0.0 /100 WBC (0.0-0.2); Platelet Count 206 K/mm3 (150-400); RDW Coefficient Variation 12.1 % (11.7-14.2); RDW Standard Deviation 40.2 fL (35.1-46.3)
[2025-03-21 17:07] LABS: Alanine Aminotransfer (ALT/SGP 45 U/L (12-78); Albumin, Blood 4.3 g/dL (3.4-5.0); Albumin/Globulin Ratio 1.2 (0.8-1.8); Anion Gap 7 mmol/L (3-11); Aspartate Aminotrans (AST/SGOT 25 U/L (12-37); Bilirubin, Total 0.5 mg/dL (0.1-1.0); Blood Urea Nitrogen 25 mg/dL (8-24); CHOL/HDL RATIO 2.6; CO2, Blood 29 mmol/L (21-32); Calcium, Blood 9.3 mg/dL (8.5-10.1); Chloride, Blood 102 mmol/L (98-108); Cholesterol 121 mg/dL (50-200); Creatinine, Blood 1.34 mg/dL (0.60-1.20); Globulin, Blood 3.6 g/dL (2.2-4.0); Glucose, Blood 108 mg/dL (70-99); HDL Cholesterol 47 mg/dL (>39); LDL/HDL RATIO 1.2; Low Density Lipoprotein Chol 54 mg/dL (0-110); Potassium, Blood 4.0 mmol/L (3.5-5.5); Sodium, Blood 134 mmol/L (136-145); Thyroid Stimulating Hormone 1.070 uIU/mL (0.360-4.800); Total Protein, Blood 7.9 g/dL (6.4-8.2); Triglycerides 98 mg/dL (30-160); Very Low Density Lipoprot Chol 19 mg/dL (6-32)
== END ==
LOC: LAB SHORT 15:07 → LAB 15:07
PROVIDERS: Nurse Practitioner Family
DX: Z00.00 Encounter for general adult medical examination without abnormal findings (principal)
CPT/HCPCS: 80053; 80061; 83036; 84443; 85025